=== PATIENT | female | born 1985 | race Caucasian/White ===

== ENCOUNTER → 2016-07-05 | Outpatient (REF) | payer OTHER ==
[~2016-07-05] MED LIST: /MOM400 PO; ACET50TA PO; ANUS2.5C2 TOP; COLA50CA3 PO; IBUP600T26 PO; PRENTAB55 PO; PRENTAB74 PO; VALT1TAB PO
== END ==
LOC: M LABDRAW1 16:30
PROVIDERS: ATTEND Physician Assistant Medical
DX: E04.0 Nontoxic diffuse goiter (principal)

== ENCOUNTER → 2017-01-27 | Outpatient (CLI) | payer MEDICAID, OTHER ==
--- NOTE | 2017-01-27 10:27 | REP ---
First trimester obstetric ultrasound for vaginal bleeding and viability: The patient report is approximate 7 weeks gestation. The study is performed with transabdominal and endovaginal imaging. Balloon On the initial transabdominal images there was an intrauterine gestational l sac in the lower uterine segment. This was also identified during endovaginal imaging, however, during endovaginal imaging the gestational sac migrated into the endocervical canal and was no longer present in the endometrial canal. The findings are compatible with spontaneous in progress. The ovaries are normal size. Right ovary is 3.8-0.5 x 2.8 cm. Left ovary is 2.7 x 1.7 x 2.7 cm. There are now no dominant ovarian masses or cysts. No free fluid in the pelvis. Impression: Spontaneous in progress. Signed by Yogesh Montesinos MD 01/27/2017 10:18 A
== END ==
LOC: M RAD 09:08
PROVIDERS: ATTEND Advanced Practice Midwife
DX: O26.851 Spotting complicating pregnancy, first trimester (principal); Z3A.00 Weeks of gestation of pregnancy not specified

== ENCOUNTER 2021-07-04 16:38 | Emergency (ER) | payer MEDICAID, OTHER, SELFPAY ==
[~2021-07-04] VITALS: Ht 165.1 cm; Wt 89.5 kg
[~2021-07-04 16:38] MED LIST changes: -/MOM400 PO; -ACET50TA PO; +MAPA500T17 PO; +MILK10SU PO
[2021-07-04 17:58] LABS: BASO # 0.1 10^3/uL (0.0-0.2); BASO % 0.6 % (0.0-1.0); EOS # 0.1 10^3/uL (0.0-0.5); EOS % 0.6 % (0.0-3.0); HEMATOCRIT 46.3 % (36.0-47.0); HEMOGLOBIN 15.1 g/dl (12.0-15.5); LYMPH # 2.8 10^3/uL (1.5-5.0); LYMPH % 30.4 % (24.0-44.0); MEAN CORPUSCULAR HEMOGLOBIN 26.6 pg (27.0-33.0); MEAN CORPUSCULAR HGB CONC 32.6 g/dl (32.0-36.5); MEAN CORPUSCULAR VOLUME 81.7 fl (80.0-96.0); MONO # 0.7 10^3/uL (0.0-0.8); MONO % 7.5 % (2.0-8.0); NEUTROPHILS # 5.6 10^3/uL (1.5-8.5); NEUTROPHILS % 60.6 % (36.0-66.0); PLATELET COUNT, AUTOMATED 231 10^3/uL (150-450); RED BLOOD COUNT 5.67 10^6/uL (4.00-5.40); WHITE BLOOD COUNT 9.2 10^3/uL (4.0-10.0)
[2021-07-04 18:17] LABS: ERYTHROCYTE SEDIMENTATION RATE 7 mm/hr (0-20)
[2021-07-04 18:29] LABS: ALBUMIN 4.6 GM/DL (3.2-5.2); ALT/SGPT 31 U/L (12-78); AMYLASE 50 U/L (25-115); BILIRUBIN,DIRECT 0.1 MG/DL (0.0-0.2); BILIRUBIN,TOTAL 0.3 MG/DL (0.2-1.0); BLOOD UREA NITROGEN 11 MG/DL (7-18); C REACTIVE PROTEIN QUANTITATIV 0.56 MG/DL (0.00-0.30); CALCIUM LEVEL 9.8 MG/DL (8.5-10.1); CARBON DIOXIDE LEVEL 28 MEQ/L (21-32); CHLORIDE LEVEL 106 MEQ/L (98-107); CREATININE FOR GFR 0.69 MG/DL (0.55-1.30); GLOMERULAR FILTRATION RATE > 60.0 (>60); GLUCOSE, FASTING 79 MG/DL (70-100); LIPASE 124 U/L (73-393); POTASSIUM SERUM 4.1 MEQ/L (3.5-5.1); RHEUMATOID FACTOR QUANT < 10.0 IU/ML (<15.0); SODIUM LEVEL 138 MEQ/L (136-145); TOTAL PROTEIN 8.5 GM/DL (6.4-8.2)
[2021-07-04] MEDS ORDERED: IBUP80TA PO (19:26)
[2021-07-04 19:27] LABS: GC DNA AMPLIFICATION NEGATIVE (NEGATIVE)
[2021-07-04 19:37] VITALS: BP 153/98
[2021-07-07 23:07] LABS: ANTINUCLEAR ANTIBODIES DIRECT Negative (Negative); CYCLIC CITRULLINATED PEPTIDE 5 units (0-19)
== END 2021-07-04 20:00 | disposition home or self-care (01) ==
LOC: M ED 16:38
DX: R20.2 Paresthesia of skin (principal); N84.1 Polyp of cervix uteri; K76.0 Fatty (change of) liver, not elsewhere classified; R79.82 Elevated C-reactive protein (CRP); R74.01 Elevation of levels of liver transaminase levels; R93.89 Abnormal findings on diagnostic imaging of other specified body structures

== ENCOUNTER 2021-09-02 17:21 | Emergency (ER) | payer OTHER, SELFPAY ==
[~2021-09-02] VITALS: Ht 165.1 cm; Wt 84.5 kg
[~2021-09-02 17:21] MED LIST changes: +IBUP80TA PO
[2021-09-02 19:17] LABS: BASO # 0.1 10^3/uL (0.0-0.2); BASO % 0.8 % (0.0-1.0); EOS % 0.3 % (0.0-3.0); HEMATOCRIT 43.1 % (36.0-47.0); HEMOGLOBIN 14.5 g/dl (12.0-15.5); LYMPH % 24.5 % (24.0-44.0); MEAN CORPUSCULAR HGB CONC 33.6 g/dl (32.0-36.5); MEAN CORPUSCULAR VOLUME 80.1 fl (80.0-96.0); MONO # 0.8 10^3/uL (0.0-0.8); MONO % 6.3 % (2.0-8.0); NEUTROPHILS # 8.2 10^3/uL (1.5-8.5); NEUTROPHILS % 67.7 % (36.0-66.0); PLATELET COUNT, AUTOMATED 219 10^3/uL (150-450); RED BLOOD COUNT 5.38 10^6/uL (4.00-5.40); WHITE BLOOD COUNT 12.1 10^3/uL (4.0-10.0)
[2021-09-02 19:43] LABS: ALBUMIN 4.3 GM/DL (3.2-5.2); ALT/SGPT 31 U/L (12-78); BILIRUBIN,DIRECT 0.2 MG/DL (0.0-0.2); BILIRUBIN,TOTAL 0.5 MG/DL (0.2-1.0); BLOOD UREA NITROGEN 12 MG/DL (7-18); CALCIUM LEVEL 9.6 MG/DL (8.5-10.1); CARBON DIOXIDE LEVEL 25 MEQ/L (21-32); CHLORIDE LEVEL 104 MEQ/L (98-107); GLOMERULAR FILTRATION RATE > 60.0 (>60); GLUCOSE, FASTING 79 MG/DL (70-100); LIPASE 154 U/L (73-393); POTASSIUM SERUM 3.9 MEQ/L (3.5-5.1); SODIUM LEVEL 137 MEQ/L (136-145); TOTAL PROTEIN 7.6 GM/DL (6.4-8.2)
[2021-09-02 19:47] LABS: HCG, SERUM QUALITATIVE POSITIVE (NEGATIVE)
[2021-09-02 21:00] LABS: HCG, SERUM QUANTITATIVE 34739 MIU/ML
[2021-09-03] MEDS ORDERED: ONDA4TAB6 PO (01:27)
[2021-09-03 01:47] VITALS: BP 121/84
== END 2021-09-03 01:48 | disposition home or self-care (01) ==
LOC: M ED 17:21
DX: Z32.01 Encounter for pregnancy test, result positive (principal); O99.211 Obesity complicating pregnancy, first trimester; O09.521 Supervision of elderly multigravida, first trimester; Z87.59 Personal history of other complications of pregnancy, childbirth and the puerperium

== ENCOUNTER → 2021-10-09 | Outpatient (REF) | payer OTHER ==
[~2021-10-09] MED LIST changes: +ONDA4TAB6 PO
== END ==
LOC: M PLALAB 13:20
PROVIDERS: ATTEND Advanced Practice Midwife
DX: Z34.91 Encounter for supervision of normal pregnancy, unspecified, first trimester (principal); Z53.9 Procedure and treatment not carried out, unspecified reason

== ENCOUNTER → 2021-10-09 | Outpatient (CLI) | payer OTHER ==
[2021-10-09 15:36] LABS: BASO % 0.3 % (0.0-1.0); EOS % 0.1 % (0.0-3.0); HEMATOCRIT 38.4 % (36.0-47.0); LYMPH # 1.4 10^3/uL (1.5-5.0); LYMPH % 19.5 % (24.0-44.0); MEAN CORPUSCULAR HGB CONC 33.9 g/dl (32.0-36.5); MEAN CORPUSCULAR VOLUME 79.7 fl (80.0-96.0); MONO # 0.4 10^3/uL (0.0-0.8); MONO % 5.6 % (2.0-8.0); NEUTROPHILS # 5.2 10^3/uL (1.5-8.5); NEUTROPHILS % 74.1 % (36.0-66.0); PLATELET COUNT, AUTOMATED 186 10^3/uL (150-450); RED BLOOD COUNT 4.82 10^6/uL (4.00-5.40); WHITE BLOOD COUNT 7.1 10^3/uL (4.0-10.0)
[2021-10-09 16:49] LABS: HEPATITIS C VIRUS ABY INDEX 0.1 INDEX (<0.8); HIV 1&2 SCREEN CENTAUR NEGATIVE (NEGATIVE)
[2021-10-09 18:38] LABS: GC DNA AMPLIFICATION NEGATIVE (NEGATIVE)
== END ==
LOC: M PLALAB 13:51
PROVIDERS: ATTEND Advanced Practice Midwife
DX: Z34.91 Encounter for supervision of normal pregnancy, unspecified, first trimester (principal)

== ENCOUNTER → 2021-11-27 | Outpatient (CLI) | payer OTHER | LOC: M WHC 12:20 | PROVIDERS: ATTEND Obstetrics & Gynecology | DX: Z34.92 Encounter for supervision of normal pregnancy, unspecified, second trimester (principal); Z3A.19 19 weeks gestation of pregnancy ==

== ENCOUNTER → 2022-02-15 | Outpatient (CLI) | payer OTHER | LOC: M WHC 08:13 | PROVIDERS: ATTEND Midwife | DX: Z36.2 Encounter for other antenatal screening follow-up (principal); Z3A.30 30 weeks gestation of pregnancy ==

== ENCOUNTER → 2023-04-05 | Outpatient (CLI) | payer OTHER | LOC: M WHC 09:11 | PROVIDERS: ATTEND Midwife | DX: Z36.89 Encounter for other specified antenatal screening (principal) ==

== ENCOUNTER 2023-04-30 02:29 | Emergency (ER) | payer OTHER ==
[~2023-04-30] VITALS: Ht 165.1 cm; Wt 97.0 kg
[2023-04-30 02:45] VITALS: TEMP 99.3
[2023-04-30] MEDS: IPRATROPIUM 0.5MG/ALBUTEROL 2.5MG INH SOL UD 3ML (DUONEB) NEB PRN ×2 (02:45→02:46)
[2023-04-30 03:00] LABS: VENOUS BASE EXCESS 0.8 (-2.0-2.0); VENOUS HCO3 23.1 MMOL/L (23.0-27.0); VENOUS O2 SATURATION 99.4 % (60.0-80.0); VENOUS PARTIAL PRESSURE CO2 30.7 mmHg (38.0-50.0); VENOUS PARTIAL PRESSURE O2 249.6 mmHg (30.0-50.0); VENOUS PH 7.495 UNITS (7.330-7.430); VENOUS STANDARD HCO3 25.2 MMOL/L; VENOUS TOTAL CO2 24.1 MMOL/L (24.0-28.0)
[2023-04-30 03:04] LABS: BASO # 0.1 10^3/uL (0.0-0.2); BASO % 0.5 % (0.0-1.0); EOS # 0.1 10^3/uL (0.0-0.5); EOS % 1.1 % (0.0-3.0); HEMATOCRIT 40.2 % (36.0-47.0); HEMOGLOBIN 13.4 g/dl (12.0-15.5); LYMPH # 2.9 10^3/uL (1.5-5.0); LYMPH % 29.5 % (24.0-44.0); MEAN CORPUSCULAR HEMOGLOBIN 26.5 pg (27.0-33.0); MEAN CORPUSCULAR HGB CONC 33.3 g/dl (32.0-36.5); MEAN CORPUSCULAR VOLUME 79.6 fl (80.0-96.0); MONO # 0.6 10^3/uL (0.0-0.8); MONO % 6.1 % (2.0-8.0); NEUTROPHILS % 62.5 % (36.0-66.0); PLATELET COUNT, AUTOMATED 181 10^3/uL (150-450); RED BLOOD COUNT 5.05 10^6/uL (4.00-5.40); WHITE BLOOD COUNT 9.7 10^3/uL (4.0-10.0)
[2023-04-30 03:39] LABS: ALKALINE PHOSPHATASE 70 U/L (46-116); ALT/SGPT 20 U/L (7.0-40); AST/SGOT 27 U/L (<34); BILIRUBIN,DIRECT 0.1 MG/DL (<0.4); BILIRUBIN,TOTAL 0.4 MG/DL (0.3-1.2); BLOOD UREA NITROGEN 19 MG/DL (9-23); CALCIUM LEVEL 9.2 MG/DL (8.5-10.1); CARBON DIOXIDE LEVEL 23 MMOL/L (20-31); CHLORIDE LEVEL 105 MMOL/L (98-107); CK-MB VALUE MASS < 1.0 NG/ML (<3.6); CREATININE FOR GFR 0.65 MG/DL (0.55-1.30); GLOMERULAR FILTRATION RATE > 60.0 (>60); GLUCOSE, FASTING 103 MG/DL (60-100); POTASSIUM SERUM 3.7 MMOL/L (3.5-5.1); SODIUM LEVEL 141 MMOL/L (136-145)
[2023-04-30 03:56] LABS: HCG, SERUM QUALITATIVE NEGATIVE (NEGATIVE)
[2023-04-30 03:59] LABS: PROCALCITONIN <0.04 ng/ml
[2023-04-30 04:05] LABS: CPK CREATINE PHOSPHOKINASE 87 U/L (34-145); MB/CK RELATIVE INDEX 1.14 (< OR =4)
[2023-04-30 04:15] VITALS: O2SAT 96
[2023-04-30 05:30] VITALS: BP 133/62
[2023-04-30] MEDS ORDERED: AZITHROMYCIN 250MG TABLET PO ONE (05:55)
[2023-04-30] MEDS ORDERED: PEPC1TAB5 PO (05:59)
[2023-04-30] MEDS ORDERED: CETI10CH PO (05:59)
[2023-04-30] MEDS ORDERED: AZIT500T5 PO (05:59)
[2023-04-30] MEDS ORDERED: PRED20TA PO (05:59)
[2023-04-30] MEDS ORDERED: COMBAER6 INH (06:08)
== END 2023-04-30 06:10 | disposition home or self-care (01) ==
LOC: M ED 02:29
DX: T78.40XA Allergy, unspecified, initial encounter (principal); R00.0 Tachycardia, unspecified; Z79.52 Long term (current) use of systemic steroids; Z79.899 Other long term (current) drug therapy; Z79.83 Long term (current) use of bisphosphonates; Z79.2 Long term (current) use of antibiotics

== ENCOUNTER → 2023-08-03 | Outpatient (CLI) | payer OTHER ==
[~2023-08-03] MED LIST changes: +AZIT500T5 PO; +CETI10CH PO; +COMBAER6 INH; +PEPC1TAB5 PO; +PRED20TA PO
[2023-08-03 17:23] LABS: HEMATOCRIT 43.2 % (36.0-47.0); HEMOGLOBIN 14.1 g/dl (12.0-15.5); MEAN CORPUSCULAR HEMOGLOBIN 26.6 pg (27.0-33.0); MEAN CORPUSCULAR HGB CONC 32.6 g/dl (32.0-36.5); MEAN CORPUSCULAR VOLUME 81.4 fl (80.0-96.0); PLATELET COUNT, AUTOMATED 220 10^3/uL (150-450); RED BLOOD COUNT 5.31 10^6/uL (4.00-5.40); WHITE BLOOD COUNT 8.2 10^3/uL (4.0-10.0)
[2023-08-03 17:51] LABS: THYROID STIMULATING HORMONE 2.584 uIU/ML (0.55-4.78)
[2023-08-03 17:53] LABS: CORTISOL AM 11.7 UG/DL (4.3-22.4); FREE T4 0.87 NG/DL (0.89-1.76)
== END ==
LOC: M WUC 10:51
PROVIDERS: ATTEND Midwife
DX: F41.9 Anxiety disorder, unspecified (principal)

== ENCOUNTER → 2023-08-18 | Outpatient (CLI) | payer OTHER | LOC: M WHC 12:55 | PROVIDERS: ATTEND Midwife | DX: Z34.81 Encounter for supervision of other normal pregnancy, first trimester (principal); Z3A.10 10 weeks gestation of pregnancy; Z36.87 Encounter for antenatal screening for uncertain dates ==

== ENCOUNTER → 2023-12-09 | Outpatient (CLI) | payer OTHER ==
[~2023-12-09] MED LIST changes: +ONDA-282 PO; -ONDA4TAB6 PO
== END ==
LOC: M RAD 13:42
PROVIDERS: ATTEND Midwife
DX: Z34.80 Encounter for supervision of other normal pregnancy, unspecified trimester (principal)

== ENCOUNTER → 2024-02-08 | Outpatient (CLI) | payer OTHER, SELFPAY | LOC: M RAD 09:09 | PROVIDERS: ATTEND Midwife | DX: Z34.83 Encounter for supervision of other normal pregnancy, third trimester (principal); Z3A.35 35 weeks gestation of pregnancy ==

== ENCOUNTER 2024-05-21 18:13 | Inpatient (IN) | payer MEDICAID, OTHER ==
[~2024-05-21] VITALS: Ht 165.1 cm; Wt 89.6 kg
[2024-05-21] MEDS ORDERED: METO1TAB32 (18:32)
[2024-05-21] MEDS ORDERED: HYDR-3363 PO (18:32)
[2024-05-21] MEDS ORDERED: SERT50TA29 PO (18:32)
[2024-05-21 21:01] LABS: BASO % 0.5 % (0.0-1.0); EOS % 0.6 % (0.0-3.0); HEMATOCRIT 44.8 % (36.0-47.0); LYMPH # 2.3 10^3/uL (1.5-5.0); LYMPH % 36.8 % (24.0-44.0); MEAN CORPUSCULAR HEMOGLOBIN 25.8 pg (27.0-33.0); MEAN CORPUSCULAR HGB CONC 33.5 g/dl (32.0-36.5); MONO # 0.5 10^3/uL (0.0-0.8); MONO % 7.8 % (2.0-8.0); NEUTROPHILS # 3.4 10^3/uL (1.5-8.5); NEUTROPHILS % 54.1 % (36.0-66.0); PLATELET COUNT, AUTOMATED 189 10^3/uL (150-450); RED BLOOD COUNT 5.82 10^6/uL (4.00-5.40); WHITE BLOOD COUNT 6.2 10^3/uL (4.0-10.0)
[2024-05-21] MEDS: LORazepam 2 MG/ML 1ML VIAL IV STA (21:04)
[2024-05-21 21:20] LABS: INR 0.97; PARTIAL THROMBOPLASTIN TIME 28.3 SECONDS (24.8-34.2); PROTHROMBIN TIME 13.1 SECONDS (12.5-14.5)
[2024-05-21 21:25] LABS: URIC ACID 6.2 MG/DL (3.1-7.8)
[2024-05-21 21:26] LABS: ETHYL ALCOHOL (ETHANOL) < 0.003 % (0.000-0.010)
[2024-05-21 21:28] LABS: ALBUMIN 4.4 G/DL (3.2-5.2); ALKALINE PHOSPHATASE 92 U/L (35-104); ALT/SGPT 26 U/L (7.0-40); AST/SGOT 22 U/L (<34); BILIRUBIN,DIRECT 0.2 MG/DL (<0.4); BILIRUBIN,TOTAL 0.7 MG/DL (0.3-1.2); BLOOD UREA NITROGEN 18 MG/DL (9-23); CALCIUM LEVEL 9.9 MG/DL (8.5-10.1); CARBON DIOXIDE LEVEL 26 MMOL/L (20-31); CHLORIDE LEVEL 105 MMOL/L (98-107); CREATININE FOR GFR 0.58 MG/DL (0.55-1.30); GLOMERULAR FILTRATION RATE > 60.0 (>60); GLUCOSE, FASTING 89 MG/DL (60-100); MAGNESIUM LEVEL 2.1 MG/DL (1.8-2.4); POTASSIUM SERUM 3.8 MMOL/L (3.5-5.1); SALICYLATE LEVEL < 3.0 MG/DL (<30); SODIUM LEVEL 141 MMOL/L (136-145); TOTAL PROTEIN 7.7 G/DL (5.7-8.2)
[2024-05-21 21:30] LABS: FREE T4 1.02 NG/DL (0.89-1.76); THYROID STIMULATING HORMONE 2.112 uIU/ML (0.55-4.78)
[2024-05-21 21:34] LABS: PROCALCITONIN <0.04 ng/ml
[2024-05-21 22:26] LABS: APPEARANCE, URINE HAZY (CLEAR); BACTERIA, URINE AUTO NEGATIVE (NEGATIVE); BILIRUBIN, URINE AUTO NEGATIVE (NEGATIVE); BLOOD, URINE BLOOD NEGATIVE (NEGATIVE); COLOR, URINE AMBER (YELLOW); GLUCOSE, URINE (UA) AUTO NEGATIVE (NEGATIVE); KETONE, URINE AUTO TRACE mg/dL (NEGATIVE); LEUKOCYTE ESTERASE, URINE AUTO NEGATIVE (NEGATIVE); MUCUS, URINE LARGE (NEGATIVE); NITRITE, URINE AUTO NEGATIVE (NEGATIVE); PROTEIN, URINE AUTO 1+ mg/dL (NEGATIVE); RBC, URINE AUTO 0 /HPF (0-3); SPECIFIC GRAVITY URINE AUTO 1.032 (1.002-1.035); SQUAMOUS EPITHELIAL CELL UR AU 10 /HPF (0-6); UROBILINOGEN, URINE AUTO 0.2 mg/dL (0.0-2.0); WBC, URINE AUTO 0 /HPF (0-3)
[2024-05-21 22:48] LABS: AMPHETAMINES LEVEL URINE NEGATIVE (NEGATIVE); BARBITURATES URINE NEGATIVE (NEGATIVE); CANNABINOIDS URINE NEGATIVE (NEGATIVE); COCAINE METABOLITE URINE NEGATIVE (NEGATIVE); METHADONE URINE NEGATIVE (NEGATIVE); OPIATES URINE NEGATIVE (NEGATIVE); PHENCYCLIDINE URINE NEGATIVE (NEGATIVE)
[2024-05-21 22:51] LABS: BENZODIAZEPINES URINE POSITIVE (NEGATIVE)
[2024-05-21] MEDS: METHOCARBAMOL 1,000 MG/10 ML VIAL IV ONE (23:24)
[2024-05-21] MEDS ORDERED: MOM 30ML SUSPENSION UDC PO PRN (23:45)
[2024-05-21] MEDS ORDERED: IBUPROFEN 400MG TAB PO PRN (23:45)
[2024-05-21] MEDS ORDERED: MAALOX 30 ML SUSP *UDC PO PRN (23:45)
[2024-05-21] MEDS ORDERED: ALBUTEROL 90 MCG/ACT 8GM HFA INHALER INH PRN (23:45)
[2024-05-21] MEDS ORDERED: ACETAMINOPHEN 325 MG TAB PO PRN (23:45)
[2024-05-22] MEDS ORDERED: MAGN200T PO (00:04)
[2024-05-22] MEDS ORDERED: THERTAB52 PO (00:04)
[2024-05-22] MEDS ORDERED: HOME MED LIST COMPLETE! XX SCH (00:05)
[2024-05-22] MEDS: diphenhydrAMINE 25MG CAP PO PRN (01:58)
[2024-05-22] MEDS: traZODone 50 MG TAB PO PRN (01:58)
[2024-05-22 02:22] VITALS: BP 134/88; TEMP 97.6; O2SAT 98
[2024-05-22 08:00] VITALS: BP 141/78; TEMP 97.8; O2SAT 98
[2024-05-22] MEDS ORDERED: VENTAER INH (14:16)
[2024-05-22] MEDS ORDERED: DIPH-435 PO (14:16)
[2024-05-22] MEDS ORDERED: METH-1164 PO (14:16)
== END 2024-05-22 16:00 | disposition home or self-care (01) | DRG 756 ==
LOC: M ED 18:13 → M ED INP 23:44 → M PSY 05-22 01:19
PROVIDERS: ADMIT Psychiatry & Neurology Neurology; ATTEND Psychiatry & Neurology Psychiatry
DX: F41.0 Panic disorder [episodic paroxysmal anxiety] (principal); F43.81 Prolonged grief disorder; Z63.4 Disappearance and death of family member; F32.A Depression, unspecified; Z79.899 Other long term (current) drug therapy

== ENCOUNTER → 2024-06-05 | Outpatient (REF) | payer MEDICAID, OTHER ==
[~2024-06-05] MED LIST changes: +DIPH-435 PO; +HYDR-3363 PO; +MAGN200T PO; +METH-1164 PO; +METO1TAB32; +SERT50TA29 PO; +THERTAB52 PO; +TRAZ-252 PO; +VENTAER INH
== END ==
LOC: M LAB REF 16:07
PROVIDERS: ATTEND Internal Medicine
DX: R30.0 Dysuria (principal)

== ENCOUNTER → 2024-09-20 | Outpatient (CLI) | payer MEDICAID, OTHER ==
[2024-09-20 14:06] LABS: HEMOGLOBIN A1c 4.9 % (4.0-6.0)
[2024-09-20 14:12] LABS: ALBUMIN 4.3 G/DL (3.2-5.2); ALKALINE PHOSPHATASE 67 U/L (35-104); ALT/SGPT 33 U/L (7.0-40); AST/SGOT 50 U/L (<34); BILIRUBIN,TOTAL 0.3 MG/DL (0.3-1.2); BLOOD UREA NITROGEN 17 MG/DL (9-23); CARBON DIOXIDE LEVEL 22 MMOL/L (20-31); CHLORIDE LEVEL 104 MMOL/L (98-107); CHOLESTEROL LEVEL 181 MG/DL (<200); CREATININE FOR GFR 0.63 MG/DL (0.55-1.30); FREE T4 1.13 NG/DL (0.89-1.76); GLOMERULAR FILTRATION RATE > 60.0 (>60); GLUCOSE, FASTING 86 MG/DL (60-100); HDL CHOLESTEROL 46.4 MG/DL (>40); LDL CHOLESTEROL 114.6 MG/DL (<100); NON-HDL-C 134.6 MG/DL; POTASSIUM SERUM 4.7 MMOL/L (3.5-5.1); SODIUM LEVEL 138 MMOL/L (136-145); TOTAL PROTEIN 7.5 G/DL (5.7-8.2); TRIGLYCERIDES LEVEL 100 MG/DL (<150)
== END ==
LOC: M WUC 09:59
PROVIDERS: ATTEND Physician Assistant
DX: Z00.00 Encounter for general adult medical examination without abnormal findings (principal); M25.50 Pain in unspecified joint

== ENCOUNTER → 2024-10-06 | Outpatient (CLI) | payer OTHER ==
[2024-10-06 09:38] LABS: BASO # 0.1 10^3/uL (0.0-0.2); BASO % 0.8 % (0.0-1.0); EOS # 0.1 10^3/uL (0.0-0.5); EOS % 1.2 % (0.0-3.0); HEMATOCRIT 44.9 % (36.0-47.0); HEMOGLOBIN 14.8 g/dl (12.0-15.5); LYMPH # 2.1 10^3/uL (1.5-5.0); LYMPH % 34.8 % (24.0-44.0); MEAN CORPUSCULAR HEMOGLOBIN 26.5 pg (27.0-33.0); MEAN CORPUSCULAR VOLUME 80.3 fl (80.0-96.0); MONO # 0.4 10^3/uL (0.0-0.8); MONO % 6.9 % (2.0-8.0); NEUTROPHILS # 3.3 10^3/uL (1.5-8.5); PLATELET COUNT, AUTOMATED 192 10^3/uL (150-450); RED BLOOD COUNT 5.59 10^6/uL (4.00-5.40)
[2024-10-06 09:54] LABS: ERYTHROCYTE SEDIMENTATION RATE 14 mm/hr (0-20)
[2024-10-06 10:05] LABS: C REACTIVE PROTEIN QUANTITATIV < 0.50 MG/DL (<1.0); RHEUMATOID FACTOR QUANT < 3.5 IU/ML (<14)
== END ==
LOC: M LAB 08:52
PROVIDERS: ATTEND Physician Assistant
DX: R76.8 Other specified abnormal immunological findings in serum (principal)

== ENCOUNTER → 2024-11-02 | Outpatient (CLI) | payer OTHER | LOC: M WUC 13:42 | PROVIDERS: ATTEND Allergy & Immunology Allergy | DX: L50.9 Urticaria, unspecified (principal) ==

== ENCOUNTER → 2025-04-05 | Outpatient (CLI) | payer OTHER | LOC: M WHC 12:02 | PROVIDERS: ATTEND Midwife | DX: Z34.82 Encounter for supervision of other normal pregnancy, second trimester (principal); Z3A.21 21 weeks gestation of pregnancy ==